=== PATIENT | female | born 1980 | race Caucasian/White ===

== ENCOUNTER 2016-12-01 10:01 | Inpatient (IN) | payer MEDICAID, OTHER ==
[~2016-12-01] VITALS: Ht 170.2 cm; Wt 64.4 kg
[2016-12-01] MEDS: LORazepam 2 MG TABLET PO PRN (10:32)
[2016-12-01] MEDS: HALOPERIDOL 5 MG TABLET PO PRN (10:32)
[2016-12-01] MEDS: ZOLPIDEM TARTRATE 10 MG TABLET PO PRN (10:32)
[2016-12-01 10:42] LABS: BASOPHILS % (AUTO) 0.5 % (0.0-2.0); EOSINOPHILS % (AUTO) 1.2 % (1.0-6.0); HEMATOCRIT 35.4 % (36-46); LYMPHOCYTES # (AUTO) 1.4 K/uL (1.0-4.8); LYMPHOCYTES % (AUTO) 20.2 % (22.0-44.0); MEAN CORPUSCULAR HGB CONC 33.8 G/dL (31.0-37.0); MEAN CORPUSCULAR VOLUME 92 fL (80-100); MONOCYTES # (AUTO) 0.5 K/uL (0.1-1.0); MONOCYTES % (AUTO) 7.2 % (2.0-9.0); NEUTROPHILS # (AUTO) 4.9 K/uL (1.8-7.7); NEUTROPHILS % (AUTO) 70.9 % (40.0-70.0); PLATELET COUNT (AUTO) 207 K/uL (150-450); RED BLOOD CELL COUNT(AUTO) 3.85 MIL/uL (4.00-5.20); RED CELL DISTRIBUTION WIDTH 14.2 % (11.5-14.5); WHITE BLOOD COUNT (AUTO) 6.9 K/uL (4.5-11.0)
[2016-12-01 10:47] LABS: ANION GAP 2 mmol/L (8-16); CALCIUM, TOTAL 8.6 mg/dL (8.8-10.5); CARBON DIOXIDE 31 mmol/L (22-29); CHLORIDE 106 mmol/L (98-107); CREATININE 0.61 mg/dL (0.60-1.30); GLOMERULAR FILTR. RATE CALC > 60 mL/min (>60); POTASSIUM 4.1 mmol/L (3.5-5.1); SODIUM SERUM 139 mmol/L (136-145); UREA NITROGEN, BLOOD 9 mg/dL (7-18)
[2016-12-01 10:52] LABS: ALANINE AMINOTRANSFERASE 19 U/L (12-78); ALBUMIN 3.4 g/dL (3.4-5.0); ASPARTATE AMINOTRANSFERASE 12 U/L (15-37); BILIRUBIN,TOTAL 0.3 mg/dL (0.1-1.0); TOTAL PROTEIN, SERUM 6.7 g/dL (6.4-8.2)
[2016-12-01] MEDS ORDERED: INFLUENZA VIRUS VACCINE QVS 2017-18 (3YR+)/PF 60 MCG/0.5 ML SYRINGE IM ONE (14:15)
[2016-12-01] MEDS ORDERED: PNEUMOCOCCAL VACCINE POLYVALENT 0.5 ML VIAL [PPSV23] IM ONE (14:15)
[2016-12-01] MEDS: NICOTINE 7 MG/24 HOUR PATCH TD SCH (16:17)
[2016-12-02 05:25] VITALS: BP 104/74
[2016-12-02] MEDS: LORazepam 2 MG TABLET PO PRN ×2 (06:37→10:27)
[2016-12-02] MEDS: HALOPERIDOL 5 MG TABLET PO PRN (08:19)
[2016-12-02] MEDS: NICOTINE 7 MG/24 HOUR PATCH TD SCH (08:20)
[2016-12-02 08:38] LABS: CHOL/HDL RATIO 2.8 (3.9-5.7)
[2016-12-02 08:41] VITALS: BP 102/68
[2016-12-02] MEDS: VENLAFAXINE HCL 75 MG ER CAPSULE PO SCH (13:07)
[2016-12-02 16:31] VITALS: BP 106/67
[2016-12-03 00:03] VITALS: BP 113/68
[2016-12-03] MEDS: LORazepam 2 MG TABLET PO PRN ×2 (06:33→16:13)
[2016-12-03 08:37] VITALS: BP 94/63
[2016-12-03] MEDS: NICOTINE 7 MG/24 HOUR PATCH TD SCH (08:58)
[2016-12-03] MEDS: VENLAFAXINE HCL 75 MG ER CAPSULE PO SCH (08:59)
[2016-12-03 16:13] VITALS: BP 122/80
[2016-12-03] MEDS: IBUPROFEN 400 MG TABLET PO PRN (16:13)
[2016-12-04 03:35] VITALS: BP 111/62
[2016-12-04 08:27] VITALS: BP 103/66
[2016-12-04] MEDS: NICOTINE 7 MG/24 HOUR PATCH TD SCH (08:29)
[2016-12-04] MEDS: VENLAFAXINE HCL 75 MG ER CAPSULE PO SCH (08:29)
[2016-12-04] MEDS: LORazepam 2 MG TABLET PO PRN ×2 (08:32→16:06)
[2016-12-04] MEDS: IBUPROFEN 400 MG TABLET PO PRN (09:30)
[2016-12-04 10:30] VITALS: BP 104/62
[2016-12-04 16:06] VITALS: BP 110/72
[2016-12-04] MEDS: ACETAMINOPHEN 325 MG TABLET PO PRN (16:06)
[2016-12-04 16:22] VITALS: BP 112/63
[2016-12-05 05:24] VITALS: BP 105/69
[2016-12-05] MEDS: ACETAMINOPHEN 325 MG TABLET PO PRN (05:26)
[2016-12-05] MEDS: LORazepam 2 MG TABLET PO PRN ×4 (05:27→18:12)
[2016-12-05] MEDS: NICOTINE 7 MG/24 HOUR PATCH TD SCH (08:31)
[2016-12-05] MEDS: VENLAFAXINE HCL 75 MG ER CAPSULE PO SCH (08:31)
[2016-12-05 08:55] VITALS: BP 98/60
[2016-12-05 16:04] VITALS: BP 99/65
[2016-12-05] MEDS: HALOPERIDOL 5 MG TABLET PO PRN (18:13)
[2016-12-05] MEDS: ZOLPIDEM TARTRATE 10 MG TABLET PO PRN (20:49)
[2016-12-06 06:09] VITALS: BP 106/69
[2016-12-06] MEDS: VENLAFAXINE HCL 75 MG ER CAPSULE PO SCH (08:20)
[2016-12-06] MEDS: LORazepam 2 MG TABLET PO PRN ×2 (08:20→13:41)
[2016-12-06 08:39] VITALS: BP 102/61
[2016-12-06] MEDS: NICOTINE 7 MG/24 HOUR PATCH TD SCH (08:41)
[2016-12-06] MEDS ORDERED: VENL-67 PO (15:38)
== END 2016-12-06 16:30 | disposition home or self-care (01) | DRG 751 ==
LOC: EMS 10:03 → B2S 10:51
PROVIDERS: ADMIT Psychiatry & Neurology Psychiatry; ATTEND Psychiatry & Neurology Psychiatry
DX: F33.2 Major depressive disorder, recurrent severe without psychotic features (principal); R45.851 Suicidal ideations; Z91.14 Patient's other noncompliance with medication regimen; F17.200 Nicotine dependence, unspecified, uncomplicated; F15.90 Other stimulant use, unspecified, uncomplicated; E78.5 Hyperlipidemia, unspecified; F41.9 Anxiety disorder, unspecified; F19.10 Other psychoactive substance abuse, uncomplicated; Z71.51 Drug abuse counseling and surveillance of drug abuser; Z59.0 Homelessness; Z91.5 Personal history of self-harm; Z71.6 Tobacco abuse counseling
CPT/HCPCS: 84443; 90471; 99285; G0480